=== PATIENT | female | born 1995 | race Caucasian/White ===

== ENCOUNTER 2017-04-19 20:56 | Emergency (ER) | payer OTHER ==
[2017-04-19 21:07] VITALS: BP 116/75
--- NOTE | 2017-04-19 21:33 | UC ---
Complaint Female HPI - HPI Summary HPI Summary: 21 y/o female presents to the urgent care c/o burning and frequency on urination since yesterday. Pt reports her period started yesterday. Pt has not taking anything to alleviate symptoms. Pt denies fever, back pain, pelvic pain abdominal pain, N/V/D, Hx pf STD's vaginal discharge. - History Of Current Complaint Chief Complaint: UCGU Stated Complaint: POSS UTI Time Seen by Provider: 04/19/17 21:10 Hx Obtained From: Patient Hx Last Menstrual Period: NOW ?: No Onset/Duration: Gradual Onset, Lasting Days - 1 day, Still Present, Worse Since - this morning Timing: Intermittent, Lasting Seconds Severity Initially: Mild Severity Currently: Moderate Pain Intensity: 0 Pain Scale Used: 0-10 Numeric Character: Burning Aggravating Factor(s): Urination Alleviating Factor(s): Nothing Associated Signs And Symptoms: Positive: Negative. Negative: Fever, Back Pain, Vaginal Bleeding/Discharge, Vaginal Discharge, Genital Swelling, Genital Blisters - Risk Factors Ectopic Risk Factor: Negative - Allergies/Home Medications Allergies/Adverse Reactions: Allergies Allergy/AdvReac Type Severity Reaction Status Date / Time No Known Allergies Allergy Verified 04/19/17 21:07 Home Medications: Home Medications Control* 1 tab PO DAILY 04/19/17 [History Confirmed 04/19/17] PMH/Surg Hx/FS Hx/Imm Hx Previously Healthy: Yes - Pt denies PMHX - Surgical History Surgical History: None - Family History Known Family History: Positive: None - Pt denies FMHX - Social History Occupation: Student Lives: Dormitory/Roommates Alcohol Use: Occasionally Substance Use Type: None Smoking Status (MU): Never Smoked Tobacco - Immunization History Vaccination Up to Date: Yes Review of Systems Constitutional: Negative Skin: Negative Eyes: Negative ENT: Negative Respiratory: Negative Cardiovascular: Negative Gastrointestinal: Negative Genitourinary: Dysuria, Frequency, Urgency Motor: Negative Neurovascular: Negative Musculoskeletal: Negative Neurological: Negative Psychological: Negative Is Patient Immunocompromised?: No All Other Systems Reviewed And Are Negative: Yes Physical Exam Triage Information Reviewed: Yes Vital Signs: Initial Vital Signs Temp 97.6 F 04/19/17 21:03 Pulse 82 04/19/17 21:03 Resp 16 04/19/17 21:03 BP 116/75 04/19/17 21:03 - Additional Comments VITAL SIGNS: Reviewed. GENERAL: Patient is a well developed and nourished female who is sitting comfortable in the examining table. Patient is not in any acute respiratory distress. HEAD AND FACE: No signs of trauma. No ecchymosis, hematomas or skull depressions. No sinus tenderness. EYES: PERRLA, EOMI x 2, No injected conjunctiva, clear watery eyes, no nystagmus. No photophobia. EARS: Hearing grossly intact. Ear canals and tympanic membranes are within normal limits. MOUTH: pharynx with no erythema, no exudates,no palatal petechiae. no B/L tonsillar enlargement Uvula in midline. NECK: Supple, trachea is midline, no lymphadenopathy, no JVD, no carotid bruit, no c-spine tenderness, neck with full ROM. CHEST: Symmetric, no tenderness at palpation LUNGS: Clear to auscultation bilaterally. No wheezing or crackles. CVS: Regular rate and rhythm, S1 and S2 present, no murmurs or gallops appreciated. ABDOMEN: Soft, non-tender. No signs of distention. No rebound no guarding, and no masses palpated. Bowel sounds are normal. BACK:no scoliosis or lesions, non tender to palaption, No B/L CVA tenderness EXTREMITIES: FROM in all major joints, no edema, no cyanosis or clubbing. NEURO: Alert and oriented x 3. No acute neurological deficits. Speech is normal and follows commands. SKIN: Dry and warm Complaint Female Dx - Course Course Of Treatment: 21 y/o female presents to the urgent care c/o burning and frequency on urination since yesterday. Pt reports her period started yesterday. Pt has not taking anything to alleviate symptoms. Pt denies fever, back pain, pelvic pain abdominal pain, N/V/D, Hx pf STD's vaginal discharge. Hx obtained. PE: WNL.UA ordered. UA results: Blood 3+, Leukoesterase 1+. Pt ill be TX prophylactically for UTI and urine will be sent for culture to r/o UTI Pt Rx Macrobid 100mg PO x 7 days. Pyridium 100mg PO TID x 2 days. Advised to increase fluid intake. Urine sent for culture if any abnormality Pt will be notified for further treatment. Pt advised If symptoms do not improve to return to the urgent care or f/u with PCP. Pt understood and agreed. Left the clinic ambulating. - Differential Dx/Diagnosis Differential Diagnosis/HQI/PQRI: Cervicitis, Pelvic Inflammatory Disease, , Sexually Transmitted Disease, Ureteral Stone, Urinary Tract Infection Provider Diagnoses: 1- Dysruia. 1-UTI Discharge - Discharge Plan Condition: Stable Disposition: HOME Prescriptions: Nitrofurantoin Monohyd Macro [Macrobid] 100 mg PO BID #9 cap Phenazopyridine TAB* [Pyridium 100 mg TAB*] 100 mg PO TID #6 tab Patient Education Materials: Urinary Tract Infection in Women (ED) Referrals: [facility] [Primary Care Provider] - Additional Instructions: 1- Please take Macrobid 100mg PO x 5 days. Pyridium 100 mg PO TID x 2 days to alleviate urinary symptoms. Increase increase fluid intake. drink cranberry juice. 2-Urine sent for culture if any abnormality, you will be notified for further treatment. 3-If symptoms do not improve please return to the urgent care or f/u with her PCP.
[2017-04-19] MEDS ORDERED: Nitrofurantoin Macrocrystals* 50 MG CAP PO ONE (21:42)
[2017-04-19] MEDS ORDERED: Phenazopyridine TAB* 100 MG PO ONE (21:42)
== END 2017-04-19 22:00 | disposition home or self-care (01) ==
LOC: UCEAST 20:56
DX: N39.0 Urinary tract infection, site not specified (principal); B96.20 Unspecified Escherichia coli [E. coli] as the cause of diseases classified elsewhere
CPT/HCPCS: 81003; 87077; 87086; 87186; 99202; A9270-GY; G0463